=== PATIENT | female | born 1955 | race Caucasian/White ===

== ENCOUNTER 2017-08-22 20:12 | Emergency (ER) | payer OTHER ==
[~2017-08-22] VITALS: Ht 165.1 cm; Wt 105.8 kg
[~2017-08-22 20:12] MED LIST: ACTOS15 MG PO; ADVAIR 250/501 DISK IH; ALL DAY ALLERGY10 MG PO; ASPIR-TRIN325 M1 PO; ASPIRIN EC81 M1 PO; AUGMENTIN875 MG PO; CITALOPRAM HBR10 M1 PO; CITALOPRAM HBR10 MG PO; CLONAZEPAM0.5 MG PO; FLONASE16 GM BOTH NARES; GLUCOPHAGE500 MG; LEVAQUIN500 MG PO; METFORMIN HCL1000 MG PO; METFORMIN HCL850 MG PO; NAPROXEN500 MG PO; NORCO 5/3251 TABLET PO; PERCOCET 5/31 TABLET PO; PRAVACHOL20 MG PO; PRINZIDE 20-121 EACH PO; PROVENTIL,2.5 MG/3 M IH; SERTRALINE HCL100 MG PO; TYLENOL EXTRA500 MG; VYTORIN 10-201 EACH PO; VYTORIN 10/41 TABLET PO; ZESTORETIC,P1 TABLE1 PO
[2017-08-22 21:32] VITALS: BP 135/65
== END 2017-08-22 21:32 | disposition home or self-care (01) ==
LOC: EME 20:12
DX: S80.12XA Contusion of left lower leg, initial encounter (principal); W23.0XXA Caught, crushed, jammed, or pinched between moving objects, initial encounter; J45.909 Unspecified asthma, uncomplicated; E11.9 Type 2 diabetes mellitus without complications; Z79.84 Long term (current) use of oral hypoglycemic drugs; Z79.82 Long term (current) use of aspirin; Z85.3 Personal history of malignant neoplasm of breast; F32.9 Major depressive disorder, single episode, unspecified; Z88.5 Allergy status to narcotic agent; Z88.2 Allergy status to sulfonamides
CPT/HCPCS: 93971; 99281; 99284

== ENCOUNTER 2017-11-21 20:25 | Observation (INO) | payer OTHER ==
[~2017-11-21] VITALS: Ht 165.1 cm; Wt 103.0 kg
[~2017-11-21 20:25] MED LIST changes: -ASPIRIN EC81 M1 PO; +LO-DOSE ASPIRIN81 M1 PO
[2017-11-21 21:09] LABS: HEMATOCRIT 32.5 % (36.0-46.0); HEMOGLOBIN 11.4 G/DL (11.9-15.5); MCH 29.2 PG (29.0-34.0); MCHC 35.1 G/DL (30.0-36.0); MCV 83.3 FL (83-99); PLATELET COUNT 211 K/uL (156-360); RBC DIS.WIDTH-CV 15.4 % (11.8-14.6); RBC DIS.WIDTH-SD 46.2 % (39-53); WHITE BLOOD COUNT 7.6 K/uL (4.1-10.2)
[2017-11-21 21:19] LABS: CHLORIDE 111 mEq/L (99-109); SODIUM 140 mEq/L (136-147)
[2017-11-21 21:21] LABS: GLUCOSE 124 mg/dL (70-99)
[2017-11-21 21:25] LABS: CREATININE 1.1 mg/dL (0.6-1.3); GFR ESTIMATE (CALCULATED) 54 mL/min/; UREA NITROGEN (BUN) 33 mg/dL (9-23)
[2017-11-21 21:32] LABS: TROP-I INTERPRETATION NEGATIVE; TROPONIN-I < 0.01 ng/mL (0.0-0.30)
[2017-11-21] MEDS ORDERED: LISINOPRIL20 MG PO (22:19)
[2017-11-21] MEDS ORDERED: PIOGLITAZONE HC30 MG PO (22:20)
[2017-11-21] MEDS ORDERED: CYCLOBENZAPRINE10 MG PO (22:20)
[2017-11-21] MEDS ORDERED: ZOLOFT100 MG PO (22:21)
[2017-11-21] MEDS ORDERED: CLONAZEPAM0.5 MG PO (22:22)
[2017-11-21] MEDS ORDERED: PROMETHAZINE HC25 M1 PO (22:22)
[2017-11-21] MEDS ORDERED: DITROPAN5 MG PO (22:23)
[2017-11-21] MEDS ORDERED: PRAVACHOL10 MG PO (22:23)
[2017-11-21] MEDS ORDERED: TRAMADOL HCL50 MG PO (22:24)
[2017-11-21] MEDS ORDERED: IBUPROFEN800 MG PO (22:24)
[2017-11-21] MEDS ORDERED: METRONIDAZOLE45 G1 TP (22:25)
[2017-11-22 01:53] LABS: ALBUMIN 4.1 g/dL (3.2-4.8)
[2017-11-22 01:57] LABS: TOTAL BILIRUBIN 0.4 mg/dL (0.0-1.0)
[2017-11-22 01:58] LABS: ALKALINE PHOSPHATASE 73 IU/L (3-129)
[2017-11-22 02:01] LABS: ALT (GPT) 22 IU/L (3-49); AST (GOT) 21 IU/L (2-34); DIRECT BILIRUBIN 0.1 mg/dL (0.0-0.3)
[2017-11-22 02:02] LABS: LIPASE 36 U/L (1.0-51.0)
[2017-11-22 02:19] VITALS: BP 147/70
[2017-11-22 05:02] LABS: HEMATOCRIT 30.7 % (36.0-46.0); HEMOGLOBIN 10.6 G/DL (11.9-15.5); MCHC 34.5 G/DL (30.0-36.0); MCV 83.9 FL (83-99); PLATELET COUNT 180 K/uL (156-360); RBC DIS.WIDTH-CV 15.3 % (11.8-14.6); RBC DIS.WIDTH-SD 46.6 % (39-53); RED BLOOD COUNT 3.66 M/uL (3.80-5.20); WHITE BLOOD COUNT 5.2 K/uL (4.1-10.2)
[2017-11-22 05:11] LABS: CHLORIDE 112 mEq/L (99-109); POTASSIUM 3.9 mEq/L (3.7-5.4); SODIUM 140 mEq/L (136-147)
[2017-11-22 05:12] LABS: GLUCOSE 108 mg/dL (70-99)
[2017-11-22 05:16] LABS: CREATININE 0.9 mg/dL (0.6-1.3); GFR ESTIMATE (CALCULATED) > 59 mL/min/
[2017-11-22 05:17] LABS: UREA NITROGEN (BUN) 27 mg/dL (9-23)
[2017-11-22 05:20] LABS: TROP-I INTERPRETATION NEGATIVE; TROPONIN-I < 0.01 ng/mL (0.0-0.30)
[2017-11-22 07:10] VITALS: BP 129/66
[2017-11-22 09:47] LABS: TROP-I INTERPRETATION NEGATIVE; TROPONIN-I < 0.01 ng/mL (0.0-0.30)
[2017-11-22] MEDS ORDERED: NITROSTAT0.4 MG SL (10:32)
[2017-11-22] MEDS ORDERED: IMDUR30 MG PO (10:36)
[2017-11-22 11:51] VITALS: BP 113/55
== END 2017-11-22 12:53 | disposition home or self-care (01) ==
LOC: EME 20:25 → RME 20:25 → EDOF 11-22 01:02 → ENRESERV 11-22 01:05 → 4SOUTH 11-22 02:03
PROVIDERS: Hospitalist; Physician Assistant
DX: R07.9 Chest pain, unspecified (principal); E11.65 Type 2 diabetes mellitus with hyperglycemia; I10 Essential (primary) hypertension; E78.5 Hyperlipidemia, unspecified; R53.83 Other fatigue; R79.1 Abnormal coagulation profile; R60.0 Localized edema; Z82.49 Family history of ischemic heart disease and other diseases of the circulatory system; J45.909 Unspecified asthma, uncomplicated; F32.9 Major depressive disorder, single episode, unspecified; K21.9 Gastro-esophageal reflux disease without esophagitis; Z90.49 Acquired absence of other specified parts of digestive tract; Z90.710 Acquired absence of both cervix and uterus; F17.210 Nicotine dependence, cigarettes, uncomplicated; Z85.3 Personal history of malignant neoplasm of breast; E66.9 Obesity, unspecified; Z68.37 Body mass index [BMI] 37.0-37.9, adult; Z79.82 Long term (current) use of aspirin; Z79.84 Long term (current) use of oral hypoglycemic drugs; Z83.3 Family history of diabetes mellitus; Z82.3 Family history of stroke; Z91.048 Other nonmedicinal substance allergy status; Z88.8 Allergy status to other drugs, medicaments and biological substances; Z88.2 Allergy status to sulfonamides; Z88.5 Allergy status to narcotic agent
CPT/HCPCS: 71046; 71275; 73610; 80048; 80076; 82948; 83690; 83880; 84484; 85027; 85379; 93005; 93971; 99281; 99285; G0378; J1644; J1815; J7030

== ENCOUNTER 2017-11-23 17:38 | Observation (INO) | payer OTHER ==
[~2017-11-23] VITALS: Ht 165.1 cm; Wt 105.0 kg
[~2017-11-23 17:38] MED LIST changes: +CYCLOBENZAPRINE10 MG PO; +DITROPAN5 MG PO; +IBUPROFEN800 MG PO; +IMDUR30 MG PO; +LISINOPRIL20 MG PO; +METRONIDAZOLE45 G1 TP; +NITROSTAT0.4 MG SL; +PIOGLITAZONE HC30 MG PO; +PRAVACHOL10 MG PO; +PROMETHAZINE HC25 M1 PO; +TRAMADOL HCL50 MG PO; +ZOLOFT100 MG PO
[2017-11-23 19:03] LABS: HEMATOCRIT 33.2 % (36.0-46.0); HEMOGLOBIN 11.4 G/DL (11.9-15.5); MCH 28.6 PG (29.0-34.0); MCHC 34.3 G/DL (30.0-36.0); MCV 83.2 FL (83-99); PLATELET COUNT 214 K/uL (156-360); RBC DIS.WIDTH-CV 15.1 % (11.8-14.6); RED BLOOD COUNT 3.99 M/uL (3.80-5.20); WHITE BLOOD COUNT 6.9 K/uL (4.1-10.2)
[2017-11-23 19:18] LABS: CHLORIDE 114 mEq/L (99-109); POTASSIUM 3.5 mEq/L (3.7-5.4); SODIUM 142 mEq/L (136-147)
[2017-11-23 19:19] LABS: GLUCOSE 122 mg/dL (70-99)
[2017-11-23 19:23] LABS: CREATININE 1.1 mg/dL (0.6-1.3); GFR ESTIMATE (CALCULATED) 54 mL/min/
[2017-11-23 19:24] LABS: UREA NITROGEN (BUN) 19 mg/dL (9-23)
[2017-11-23 19:50] LABS: TROP-I INTERPRETATION NEGATIVE; TROPONIN-I < 0.01 ng/mL (0.0-0.30)
[2017-11-23 22:58] VITALS: BP 167/70
[2017-11-24 02:57] LABS: TROP-I INTERPRETATION NEGATIVE; TROPONIN-I < 0.01 ng/mL (0.0-0.30)
[2017-11-24 04:47] VITALS: BP 167/79
[2017-11-24 07:43] VITALS: BP 144/67
[2017-11-24 09:13] LABS: TROP-I INTERPRETATION NEGATIVE; TROPONIN-I < 0.01 ng/mL (0.0-0.30)
[2017-11-24 11:56] VITALS: BP 125/59
== END 2017-11-24 13:30 | disposition home or self-care (01) ==
LOC: EME 17:38 → EDOF 20:55 → 4SOUTH 20:55 → ENRESERV 20:56 → 4SOUTH 22:24
PROVIDERS: Hospitalist; Nurse Practitioner Family; Physician Assistant
DX: R07.9 Chest pain, unspecified (principal); I10 Essential (primary) hypertension; E78.5 Hyperlipidemia, unspecified; Z82.49 Family history of ischemic heart disease and other diseases of the circulatory system; I49.3 Ventricular premature depolarization; F41.9 Anxiety disorder, unspecified; Z87.891 Personal history of nicotine dependence; Z90.49 Acquired absence of other specified parts of digestive tract; Z90.710 Acquired absence of both cervix and uterus; Z83.3 Family history of diabetes mellitus; E11.9 Type 2 diabetes mellitus without complications; F32.9 Major depressive disorder, single episode, unspecified; F17.210 Nicotine dependence, cigarettes, uncomplicated; Z85.3 Personal history of malignant neoplasm of breast; Z90.11 Acquired absence of right breast and nipple; Z88.5 Allergy status to narcotic agent; Z88.2 Allergy status to sulfonamides; Z88.8 Allergy status to other drugs, medicaments and biological substances; Z91.013 Allergy to seafood; Z91.048 Other nonmedicinal substance allergy status; Z79.82 Long term (current) use of aspirin
CPT/HCPCS: 71046; 80048; 82948; 84484; 85027; 93005; 99281; 99285; G0378; J1644